=== PATIENT | male | born 1960 | race Caucasian/White ===

== ENCOUNTER 2018-05-10 12:04 | Emergency (ER) | payer OTHER ==
[2018-05-10] MEDS ORDERED: Nitrostat 0.4 MG (ED) SL ONE ×2 (12:29→12:39)
[2018-05-10] MEDS ORDERED: BABY ASPIRIN 81 MG CHEW ONE (12:29)
--- NOTE | 2018-05-10 12:38 | ERPHSYRPT ---
- History of Present Illness Time Seen by Provider: 05/10/18 12:34 Historian: patient, family Exam Limitations: no limitations Physician History: The patient is a 57-year-old male with a friend complaining of a sudden onset of central chest pain yesterday evening at 8:30 PM lasting one hour that began while he was at work. He was short of breath, nausea, and clammy. The pain went from the central chest and eventually settled onto the left chest. He remained at work even though the pain level was a 8 or 9 out of 10. He went home and went to bed. He has been experiencing musculoskeletal chest pain every night while in bed for 2 months. This muscular skeletal chest pain is definitely different than the chest pain he experienced while at work per patient report. This morning he complains of some mild central chest pain with a pain rating of 2 out of 10. Last night he described the chest pain as sharp and stabbing. He has no previous heart issues or problems. He has never had a stress test or an angiography. His past medical history is significant for GERD and arthritis. He quit smoking 11 years ago. Timing/Duration: yesterday, resolved prior to arrival, sudden Activities at Onset: none Quality: sharpness, stabbing Location: central Chest Pain Radiation: no radiation Severity of Pain-Max: severe Severity of Pain-Current: mild Modifying Factors: Improves With: nothing Associated Symptoms: nausea, shortness of breath, diaphoresis Prior Chest Pain/Cardiac Workup: no prior chest pain, no prior cardiac workup Nitro Today/Relief: 0.4 mg x 1, provided by ED Aspirin Treatment Today: 81 mg x 4, provided by ED Allergies/Adverse Reactions: No Known Drug Allergies Allergy (Verified 05/10/18 12:36) Home Medications: Lansoprazole [Prevacid] 30 mg PO DAILY 03/26/14 [History] Meloxicam 15 mg [Meloxicam 15 MG] 15 mg PO DAILY 05/10/18 [History] Hx Tetanus, Diphtheria Vaccination/Date Given: No Hx Influenza Vaccination/Date Given: No Hx Pneumococcal Vaccination/Date Given: No - Review of Systems Constitutional: No Fever, No Chills Eyes: No Symptoms Ears, Nose, & Throat: No Symptoms Respiratory: No Cough, No Dyspnea Cardiac: Chest Pain Abdominal/Gastrointestinal: No Abdominal Pain, No Nausea, No Vomiting, No Diarrhea Genitourinary Symptoms: No Dysuria Musculoskeletal: No Back Pain, No Neck Pain Skin: No Rash Neurological: No Dizziness, No Focal Weakness, No Sensory Changes Psychological: No Symptoms Endocrine: No Symptoms Hematologic/Lymphatic: No Symptoms Immunological/Allergic: No Symptoms All Other Systems: Reviewed and Negative - Past Medical History Neurological History: No Pertinent History ENT History: No Pertinent History Cardiac History: Angina, High Cholesterol, Hypertension Respiratory History: No Pertinent History Endocrine Medical History: No Pertinent History Musculoskeletal History: Arthritis GI Medical History: GERD, Hernia History: No Pertinent History Psycho-Social History: No Pertinent History Male Reproductive Disorders: No Pertinent History Other Medical History: BILATERAL KNEE ARTHROSCOPY - Past Surgical History Past Surgical History: Yes Neuro Surgical History: No Pertinent History Cardiac: No Pertinent History Respiratory: No Pertinent History Gastrointestinal: Hernia Repair Genitourinary: No Pertinent History Musculoskeletal: Orthopedic Surgery Male Surgical History: No Pertinent History Other Surgical History: L knee scope, R ankle - Social History Smoking Status: Never smoker How long have you smoked: quit 8 yea Exposure to second hand smoke: No Drug Use: none Patient Lives Alone: No - Nursing Vital Signs Nursing Vital Signs: Initial Vital Signs Temperature 97.8 F 05/10/18 12:05 Pulse Rate 60 05/10/18 12:05 Respiratory Rate 18 05/10/18 12:05 Blood Pressure 173/102 05/10/18 12:05 O2 Sat by Pulse Oximetry 100 05/10/18 12:05 Pain Scale Pain Intensity 2 - Physical Exam General Appearance: no apparent distress, alert Eye Exam: PERRL/EOMI, eyes nml inspection Ears, Nose, Throat Exam: normal ENT inspection, moist mucous membranes Neck Exam: normal inspection, non-tender, supple, full range of motion Respiratory Exam: normal breath sounds, lungs clear, No respiratory distress Cardiovascular Exam: regular rate/rhythm, normal heart sounds Gastrointestinal/Abdomen Exam: soft, No tenderness, No mass Rectal Exam: not done Back Exam: normal inspection, No CVA tenderness, No vertebral tenderness Extremity Exam: normal inspection, normal range of motion Neurologic Exam: alert, oriented x 3, cooperative, normal mood/affect, sensation nml, No motor deficits Skin Exam: normal color, warm, dry SpO2 Interpretation: normal SpO2: 100 Oxygen Delivery: Room Air - Course EKG Interpreted by Me: RATE, Sinus Rhythm, NORMAL AXIS, NORMAL INTERVALS, NORMAL QRS, NORMAL ST-T - Radiology Exams Chest X-ray Interpretation: Interpreted by me, Reviewed by me (per Dr Staley), Negative, Nml Heart Size Ordered Tests: Active Orders 24 hr Category Date Time Status Brim Shaper STAT Care 05/10/18 12:40 Active EKG-ER Only STAT Care 05/10/18 12:39 Active IV Insertion STAT Care 05/10/18 12:39 Active Pulse Oximetry (ED) STAT Care 05/10/18 12:39 Active CHEST 2 VIEWS (PA AND LAT) Stat Exams 05/10/18 12:39 Completed CBC W DIFF Stat Lab 05/10/18 12:15 Completed CMP Stat Lab 05/10/18 12:15 Completed D-DIMER QUANTITATION Stat Lab 05/10/18 12:15 Completed NT PRO BNP Stat Lab 05/10/18 12:15 Completed TROPONIN Q3H Lab 05/10/18 12:15 Completed TROPONIN Q3H Lab 05/10/18 15:45 Ordered TROPONIN Q3H Lab 05/10/18 18:45 Ordered TROPONIN Q3H Lab 05/10/18 21:45 Ordered TROPONIN Q3H Lab 05/11/18 00:45 Ordered Medication Summary Discontinued Medications Generic Name Dose Route Start Last Admin Trade Name Freq PRN Reason Stop Dose Admin Aspirin Confirm 05/10/18 12:29 Baby Aspirin 81 Mg Chew Administered 05/10/18 12:30 Dose 324 mg .ROUTE .STK-MED ONE Aspirin 324 mg 05/10/18 12:39 05/10/18 12:44 Baby Aspirin 81 Mg Chew PO 05/10/18 12:40 324 mg STAT ONE Administration Nitroglycerin Confirm 05/10/18 12:29 Nitrostat 0.4 Mg (Ed) Administered 05/10/18 12:30 Dose 0.4 mg SL .STK-MED ONE Nitroglycerin 0.4 mg 05/10/18 12:39 05/10/18 12:44 Nitrostat 0.4 Mg (Ed) SL 05/10/18 12:40 0.4 mg STAT ONE Administration Lab/Rad Data: Laboratory Result Diagrams 05/10/18 12:15 05/10/18 12:15 Laboratory Results 05/10/18 05/10/18 05/10/18 Range/Units 12:15 12:15 12:15 WBC (4.0-10.5) K/mm3 RBC (4.1-5.6) M/mm3 Hgb (12.5-18.0) gm/dl Hct (42-50) % MCV (78-100) fl MCH (26-32) pg MCHC (32-36) g/dl RDW (11.5-14.0) % Plt Count (150-450) K/mm3 MPV (6-9.5) fl Gran % (36.0-66.0) % Eos # (Auto) (0-0.5) Absolute Lymphs (auto) (1.0-4.6) Absolute Monos (auto) (0.0-1.3) Lymphocytes % (24.0-44.0) % Monocytes % (0.0-12.0) % Eosinophils % (0.00-5.0) % Basophils % (0.0-0.4) % Absolute Granulocytes (1.4-6.9) Basophils # (0-0.4) D-Dimer < 215 L (215-500) ng/mL Sodium 141 (137-145) mmol/L Potassium 4.2 (3.5-5.1) mmol/L Chloride 103 (98-107) mmol/L Carbon Dioxide 27 (22-30) mmol/L Anion Gap 14.9 (5-15) MEQ/L BUN 27 H (9-20) mg/dL Creatinine 0.83 (0.66-1.25) mg/dL Estimated GFR > 60.0 ML/MIN Glucose 129 H (74-106) mg/dL Calcium 9.8 (8.4-10.2) mg/dL Total Bilirubin 1.20 (0.2-1.3) mg/dL AST 53 (17-59) U/L ALT 78 H (0-50) U/L Alkaline Phosphatase 141 H (38-126) U/L Troponin I < 0.012 (0.000-0.034) ng/mL NT-Pro-B Natriuret Pep 33.7 (0-900) pg/mL Serum Total Protein 8.3 H (6.3-8.2) g/dL Albumin 5.0 (3.5-5.0) g/dL 05/10/18 Range/Units 12:15 WBC 4.8 (4.0-10.5) K/mm3 RBC 5.44 (4.1-5.6) M/mm3 Hgb 16.6 (12.5-18.0) gm/dl Hct 47.9 (42-50) % MCV 88.1 (78-100) fl MCH 30.5 (26-32) pg MCHC 34.7 (32-36) g/dl RDW 13.3 (11.5-14.0) % Plt Count 195 (150-450) K/mm3 MPV 10.5 H (6-9.5) fl Gran % 55.0 (36.0-66.0) % Eos # (Auto) 0.16 (0-0.5) Absolute Lymphs (auto) 1.42 (1.0-4.6) Absolute Monos (auto) 0.51 (0.0-1.3) Lymphocytes % 29.8 (24.0-44.0) % Monocytes % 10.7 (0.0-12.0) % Eosinophils % 3.4 (0.00-5.0) % Basophils % 1.1 (0.0-0.4) % Absolute Granulocytes 2.62 (1.4-6.9) Basophils # 0.05 (0-0.4) D-Dimer (215-500) ng/mL Sodium (137-145) mmol/L Potassium (3.5-5.1) mmol/L Chloride (98-107) mmol/L Carbon Dioxide (22-30) mmol/L Anion Gap (5-15) MEQ/L BUN (9-20) mg/dL Creatinine (0.66-1.25) mg/dL Estimated GFR ML/MIN Glucose (74-106) mg/dL Calcium (8.4-10.2) mg/dL Total Bilirubin (0.2-1.3) mg/dL AST (17-59) U/L ALT (0-50) U/L Alkaline Phosphatase (38-126) U/L Troponin I (0.000-0.034) ng/mL NT-Pro-B Natriuret Pep (0-900) pg/mL Serum Total Protein (6.3-8.2) g/dL Albumin (3.5-5.0) g/dL - Progress Progress: unchanged Air Movement: good Progress Note: 05/10/18 14:11 NG and ASA had no effect. Blood Culture(s) Obtained: No Antibiotics given: No Discussed with DrLydia: Shanique Will see patient in: office (Dr San to see) Counseled pt/family regarding: lab results, diagnosis, need for follow-up, rad results - Departure Time of Disposition: 14:11 Departure Disposition: Home Clinical Impression: Chest pain Condition: Stable Critical Care Time: No Referrals: AFRICA SAN [Primary Care Provider] - Additional Instructions: You have chest pain that is not caused by a cardiac problem. You were given aspirin 324 mg and nitroglycerin 0.4 mg in the ER. Your lab tests and your chest x-ray were normal. The specific test for heart muscle damage (troponin) was negative. I discussed your findings with Dr. Hadley today. You are to follow-up with Dr. San tomorrow. If you have severe chest pain again, please do not hesitate to return immediately to the ER.
[2018-05-10] MEDS ORDERED: BABY ASPIRIN 81 MG CHEW PO ONE (12:39)
[2018-05-10 12:47] LABS: BASOPHIL % 1.1 % (0.0-0.4); Basophil (Absolute #) 0.05 (0-0.4); Eosinophil % 3.4 % (0.00-5.0); Eosinophil (Absolute #) 0.16 (0-0.5); Granulocyte Absolute (ANC) 2.62 (1.4-6.9); Hematocrit 47.9 % (42-50); Hemoglobin 16.6 gm/dl (12.5-18.0); Lymphocyte (Absolute #) 1.42 (1.0-4.6); Lymphocytes % 29.8 % (24.0-44.0); Mean Cell Volume 88.1 fl (78-100); Mean Corpuscular Hemoglobin 30.5 pg (26-32); Mean Corpuscular Hgb Concent. 34.7 g/dl (32-36); Mean Platelet Volume 10.5 fl (6-9.5); Monocyte (Absolute #) 0.51 (0.0-1.3); Monocytes % 10.7 % (0.0-12.0); Platelet Count 195 K/mm3 (150-450); Red Blood Count 5.44 M/mm3 (4.1-5.6); Red Cell Distribution Width 13.3 % (11.5-14.0); White Blood Count 4.8 K/mm3 (4.0-10.5)
[2018-05-10 13:01] LABS: ALKALINE PHOSPHATASE 141 U/L (38-126); ANION GAP 14.9 MEQ/L (5-15); BLOOD UREA NITROGEN 27 mg/dL (9-20); CHLORIDE 103 mmol/L (98-107); Calcium 9.8 mg/dL (8.4-10.2); Carbon Dioxide 27 mmol/L (22-30); Creatinine 1 0.83 mg/dL (0.66-1.25); Glucose 129 mg/dL (74-106); NT PRO BNP 33.7 pg/mL (0-900); Potassium 4.2 mmol/L (3.5-5.1); SGOT/AST 53 U/L (17-59); SGPT/ALT 78 U/L (0-50); SODIUM 141 mmol/L (137-145); Total Protein 8.3 g/dL (6.3-8.2)
--- NOTE | 2018-05-10 13:13 | XRAY ---
Indication: Chest pain. Short of breath. Comparison: December 27, 2017. PA/lateral chest again demonstrates normal heart and lungs. Bony thorax intact with minimal degenerative changes. No new/acute findings.
[2018-05-10 13:54] VITALS: BP 161/94; PULSE 69
[2018-05-10 14:11] VITALS: O2SAT 100
== END 2018-05-10 14:17 | disposition home or self-care (01) ==
LOC: ED 12:04
DX: R07.9 Chest pain, unspecified (principal); Z79.899 Other long term (current) drug therapy
CPT/HCPCS: 36000; 36415; 71046; 80053; 83880; 84484; 85025; 85379; 93005; 93041; 99284; A9270-GY

== ENCOUNTER 2018-05-17 11:19 | Emergency (ER) | payer OTHER ==
[2018-05-17 11:39] VITALS: O2SAT 98
[2018-05-17] MEDS ORDERED: BABY ASPIRIN 81 MG CHEW PO ONE (11:46)
[2018-05-17] MEDS ORDERED: NITRO-BID 2% UD PACKETS TOP ONE (11:46)
--- NOTE | 2018-05-17 11:49 | ERPHSYRPT ---
- History of Present Illness Time Seen by Provider: 05/17/18 11:40 Historian: patient Exam Limitations: clinical condition Patient Subjective Stated Complaint: onset of CP while at rest in Physical therapy. has been getting therapy for generalized pain from waist to head. this was session #3. has had similar episodes last week which Dr San is aware of and is scheduled with a boot repairer . Triage Nursing Assessment: alert and oriented with C/O CP while at physical therapy today. mid sternal non radiating.. did have elevated b/p and diaphoresis.. chanel CP at this time.. skin w/d. denies other symptoms.. was at rest in PT when this started. has had similar episodes last week. Physician History: PATIENT RECENTLY DIAGNOSIS WITH TYPE 2 DIABETES 1 WEEK AGO, COMPLAINS OF SUBSTERNAL CHEST PAINS DAILY FOR 1 WEEK. ONSET DURING PHYSICAL THERAPY EXCERCISES PRIOR TO EMERGENCY ARRIVAL. HAD SUBSTERNAL CHEST PAIN, PAIN SCALE 8/ 10, ASSOCIATED WITH DIAPHORESIS AND DYSPNEA. DENIES PALPITATIONS, RADIATION OF CHEST PAIN TO NECK, ARMS OR BACK. DENIES CHEST DISCOMFORT UPON ARRIVAL TO EMERGENCY. Timing/Duration: intermittent (DAILY FOR 1 WEEK), improved Activities at Onset: activity Quality: sharpness, stabbing Location: substernal Chest Pain Radiation: no radiation Severity of Pain-Max: severe Severity of Pain-Current: none Modifying Factors: Improves With: exertion Associated Symptoms: shortness of breath, diaphoresis Prior Chest Pain/Cardiac Workup: no prior cardiac workup Nitro Today/Relief: no nitro taken today, 0.4 mg x 1 Aspirin Treatment Today: 81 mg x 4, provided by ED Allergies/Adverse Reactions: No Known Drug Allergies Allergy (Verified 05/10/18 12:36) Home Medications: Lansoprazole [Prevacid] 30 mg PO DAILY 03/26/14 [History] Meloxicam 15 mg [Meloxicam 15 MG] 15 mg PO DAILY 05/10/18 [History] Aspirin 81 gm Chew [Baby Aspirin 81 mg Chew] 81 mg PO DAILY 05/17/18 [ History] Cyclobenzaprine HCl 10 mg [Cyclobenzaprine 10 MG] 10 mg PO Q4-6HPRN PRN [History] Metformin HCl Xr 500 mg [Glucophage XR 500 MG] 500 mg PO DAILY 05/17/18 [ History] Hx Tetanus, Diphtheria Vaccination/Date Given: No Hx Influenza Vaccination/Date Given: No Hx Pneumococcal Vaccination/Date Given: No - Review of Systems Constitutional: No Fever, No Chills Eyes: No Symptoms Ears, Nose, & Throat: No Symptoms Respiratory: No Symptoms, No Cough, No Dyspnea Cardiac: Chest Pain, No Edema, No Syncope Abdominal/Gastrointestinal: No Symptoms, No Abdominal Pain, No Nausea, No Vomiting, No Diarrhea Genitourinary Symptoms: No Symptoms, No Dysuria Musculoskeletal: No Symptoms, No Back Pain, No Neck Pain Skin: No Rash Neurological: No Dizziness, No Focal Weakness, No Sensory Changes Psychological: No Symptoms Endocrine: No Symptoms All Other Systems: Reviewed and Negative - Past Medical History Pertinent Past Medical History: Yes Neurological History: No Pertinent History ENT History: No Pertinent History Cardiac History: Angina, High Cholesterol, Hypertension Respiratory History: No Pertinent History Endocrine Medical History: No Pertinent History Musculoskeletal History: Arthritis GI Medical History: GERD, Hernia History: No Pertinent History Psycho-Social History: No Pertinent History Male Reproductive Disorders: No Pertinent History Other Medical History: BILATERAL KNEE ARTHROSCOPY - Past Surgical History Past Surgical History: Yes Neuro Surgical History: No Pertinent History Cardiac: No Pertinent History Respiratory: No Pertinent History Gastrointestinal: Hernia Repair Genitourinary: No Pertinent History Musculoskeletal: Orthopedic Surgery Male Surgical History: No Pertinent History Other Surgical History: L knee scope, R ankle - Social History Smoking Status: Never smoker How long have you smoked: quit 8 yea Exposure to second hand smoke: No Drug Use: none Patient Lives Alone: No - Nursing Vital Signs Nursing Vital Signs: Initial Vital Signs Temperature 98 F 05/17/18 11:29 Pulse Rate 60 05/17/18 11:29 Respiratory Rate 18 05/17/18 11:29 Blood Pressure 179/101 05/17/18 11:29 O2 Sat by Pulse Oximetry 98 05/17/18 11:29 Pain Scale Pain Intensity 0 - Physical Exam General Appearance: no apparent distress, alert Eye Exam: PERRL/EOMI, eyes nml inspection Ears, Nose, Throat Exam: normal ENT inspection, moist mucous membranes Neck Exam: normal inspection, non-tender, supple, full range of motion Respiratory Exam: normal breath sounds, lungs clear, No respiratory distress Cardiovascular Exam: regular rate/rhythm, normal heart sounds Gastrointestinal/Abdomen Exam: soft, normal bowel sounds, No tenderness, No mass Back Exam: normal inspection, No CVA tenderness, No vertebral tenderness Extremity Exam: normal inspection, normal range of motion Neurologic Exam: alert, oriented x 3, cooperative, normal mood/affect, sensation nml, No motor deficits Skin Exam: normal color, warm, dry SpO2 Interpretation: normal SpO2: 98 Oxygen Delivery: Room Air - Course EKG Interpreted by Me: RATE, Sinus [place] ([id number] WITH INFERIOR LATERAL T WAVE INVERSION) - Radiology Exams Chest X-ray Interpretation: Discussed w/ radiologist, Negative, No Infiltrates Ordered Tests: Active Orders 24 hr Category Date Time Status Grain Mixer STAT Care 05/17/18 11:46 Active EKG-ER Only STAT Care 05/17/18 11:46 Active IV Insertion STAT Care 05/17/18 11:46 Active Oxygen-ED Only NASAL CANNULA 2 lpm Care 05/17/18 11:46 Active Pulse Oximetry (ED) STAT Care 05/17/18 11:46 Active CHEST 1 VIEW (PORTABLE) Stat Exams 05/17/18 11:46 Completed CBC W DIFF Stat Lab 05/17/18 11:48 Completed CMP Stat Lab 05/17/18 11:48 Completed D-DIMER QUANTITATION Stat Lab 05/17/18 11:48 Completed PROTIME WITH INR Stat Lab 05/17/18 11:48 Completed TROPONIN Q3H Lab 05/17/18 11:48 Completed TROPONIN Q3H Lab 05/17/18 15:00 Ordered TROPONIN Q3H Lab 05/17/18 18:00 Ordered TROPONIN Q3H Lab 05/17/18 21:00 Ordered TROPONIN Q3H Lab 05/18/18 00:00 Ordered Medication Summary Generic Name Dose Route Start Last Admin Trade Name Freq PRN Reason Stop Dose Admin Sodium Chloride 1,000 mls @ 50 mls/hr 05/17/18 12:00 05/17/18 11:58 Sodium Chloride 0.9% 1000 Ml IV 06/16/18 11:59 50 mls/hr .Q20H HEMAL Administration Discontinued Medications Generic Name Dose Route Start Last Admin Trade Name Freq PRN Reason Stop Dose Admin Aspirin 324 mg 05/17/18 11:46 05/17/18 11:57 Baby Aspirin 81 Mg Chew PO 05/17/18 11:47 324 mg STAT ONE Administration Aspirin Confirm 05/17/18 11:52 Baby Aspirin 81 Mg Chew Administered 05/17/18 11:53 Dose 324 mg .ROUTE .STK-MED ONE Clopidogrel Bisulfate 75 mg 05/17/18 12:15 05/17/18 12:21 Plavix 75 Mg Tablet PO 05/17/18 12:16 75 mg STAT ONE Administration Clopidogrel Bisulfate Confirm 05/17/18 12:20 Plavix 75 Mg Tablet Administered 05/17/18 12:21 Dose 75 mg .ROUTE .STK-MED ONE Nitroglycerin 1 gm 05/17/18 11:46 05/17/18 11:58 Nitro-Bid 2% Ud Packets TOP 05/17/18 11:47 1 gm STAT ONE Administration Nitroglycerin Confirm 05/17/18 11:52 Nitro-Bid 2% Ud Packets Administered 05/17/18 11:53 Dose 1 gm .ROUTE .STK-MED ONE Lab/Rad Data: Laboratory Result Diagrams 05/17/18 11:48 05/17/18 11:48 Laboratory Results 05/17/18 05/17/18 05/17/18 Range/Units 11:48 11:48 11:48 WBC (4.0-10.5) K/mm3 RBC (4.1-5.6) M/mm3 Hgb (12.5-18.0) gm/dl Hct (42-50) % MCV (78-100) fl MCH (26-32) pg MCHC (32-36) g/dl RDW (11.5-14.0) % Plt Count (150-450) K/mm3 MPV (6-9.5) fl Gran % (36.0-66.0) % Eos # (Auto) (0-0.5) Absolute Lymphs (auto) (1.0-4.6) Absolute Monos (auto) (0.0-1.3) Lymphocytes % (24.0-44.0) % Monocytes % (0.0-12.0) % Eosinophils % (0.00-5.0) % Basophils % (0.0-0.4) % Absolute Granulocytes (1.4-6.9) Basophils # (0-0.4) PT 11.4 (8.83-12.87) SECONDS INR 0.98 (0.8-3.0) D-Dimer < 215 L (215-500) ng/mL Sodium 141 (137-145) mmol/L Potassium 4.0 (3.5-5.1) mmol/L Chloride 100 (98-107) mmol/L Carbon Dioxide 30 (22-30) mmol/L Anion Gap 15.4 H (5-15) MEQ/L BUN 23 H (9-20) mg/dL Creatinine 0.88 (0.66-1.25) mg/dL Estimated GFR > 60.0 ML/MIN Glucose 120 H (74-106) mg/dL Calcium 10.0 (8.4-10.2) mg/dL Total Bilirubin 0.60 (0.2-1.3) mg/dL AST 46 (17-59) U/L ALT 74 H (0-50) U/L Alkaline Phosphatase 139 H (38-126) U/L Troponin I < 0.012 (0.000-0.034) ng/mL Serum Total Protein 7.6 (6.3-8.2) g/dL Albumin 4.6 (3.5-5.0) g/dL 05/17/18 Range/Units 11:48 WBC 4.3 (4.0-10.5) K/mm3 RBC 5.35 (4.1-5.6) M/mm3 Hgb 16.3 (12.5-18.0) gm/dl Hct 47.1 (42-50) % MCV 88.0 (78-100) fl MCH 30.5 (26-32) pg MCHC 34.6 (32-36) g/dl RDW 13.2 (11.5-14.0) % Plt Count 165 (150-450) K/mm3 MPV 10.5 H (6-9.5) fl Gran % 48.3 (36.0-66.0) % Eos # (Auto) 0.23 (0-0.5) Absolute Lymphs (auto) 1.43 (1.0-4.6) Absolute Monos (auto) 0.50 (0.0-1.3) Lymphocytes % 33.4 (24.0-44.0) % Monocytes % 11.7 (0.0-12.0) % Eosinophils % 5.4 H (0.00-5.0) % Basophils % 1.2 (0.0-0.4) % Absolute Granulocytes 2.07 (1.4-6.9) Basophils # 0.05 (0-0.4) PT (8.83-12.87) SECONDS INR (0.8-3.0) D-Dimer (215-500) ng/mL Sodium (137-145) mmol/L Potassium (3.5-5.1) mmol/L Chloride (98-107) mmol/L Carbon Dioxide (22-30) mmol/L Anion Gap (5-15) MEQ/L BUN (9-20) mg/dL Creatinine (0.66-1.25) mg/dL Estimated GFR ML/MIN Glucose (74-106) mg/dL Calcium (8.4-10.2) mg/dL Total Bilirubin (0.2-1.3) mg/dL AST (17-59) U/L ALT (0-50) U/L Alkaline Phosphatase (38-126) U/L Troponin I (0.000-0.034) ng/mL Serum Total Protein (6.3-8.2) g/dL Albumin (3.5-5.0) g/dL - Progress Progress: improved Progress Note: 05/17/18 12:10 ADMINISTERED BABY ASA 324MG ORALLY, APPLICATION NITROPASTE 1" ANTERIOR CHEST WALL. 05/17/18 13:23 ALL LAB TEST REVIEWED AND ARE NORMAL 05/17/18 14:29. HAS BEEN PAIN FREE THROUGH OUT EMERGENCY ROOM VISIT Discussed with : Other (DISCUSSED WITH DR العراقي AT 1310 ACCEPTS TRANSFER TO [facility] VIA [facility]) - Departure Time of Disposition: 14:30 Departure Disposition: Transfer Clinical Impression: ACUTE CHEST PAIN Condition: Stable Critical Care Time: No Referrals: AFRICA SAN [Primary Care Provider] -
[2018-05-17] MEDS ORDERED: Sodium Chloride 0.9% 1000 ML 1,000 ML ONE (11:52)
[2018-05-17] MEDS ORDERED: BABY ASPIRIN 81 MG CHEW ONE (11:52)
[2018-05-17] MEDS ORDERED: NITRO-BID 2% UD PACKETS ONE (11:52)
[2018-05-17] MEDS ORDERED: Sodium Chloride 0.9% 1000 ML 1,000 ML IV SCH (12:00)
[2018-05-17] MEDS ORDERED: PLAVIX 75 MG Tablet PO ONE (12:15)
[2018-05-17 12:17] LABS: BASOPHIL % 1.2 % (0.0-0.4); Basophil (Absolute #) 0.05 (0-0.4); Eosinophil % 5.4 % (0.00-5.0); Eosinophil (Absolute #) 0.23 (0-0.5); Granulocyte Absolute (ANC) 2.07 (1.4-6.9); Granulocytes % 48.3 % (36.0-66.0); Hematocrit 47.1 % (42-50); Hemoglobin 16.3 gm/dl (12.5-18.0); Lymphocyte (Absolute #) 1.43 (1.0-4.6); Lymphocytes % 33.4 % (24.0-44.0); Mean Corpuscular Hemoglobin 30.5 pg (26-32); Mean Corpuscular Hgb Concent. 34.6 g/dl (32-36); Mean Platelet Volume 10.5 fl (6-9.5); Monocytes % 11.7 % (0.0-12.0); Platelet Count 165 K/mm3 (150-450); Red Blood Count 5.35 M/mm3 (4.1-5.6); Red Cell Distribution Width 13.2 % (11.5-14.0); White Blood Count 4.3 K/mm3 (4.0-10.5)
[2018-05-17] MEDS ORDERED: PLAVIX 75 MG Tablet ONE (12:20)
--- NOTE | 2018-05-17 12:31 | XRAY ---
Indication: Dyspnea. Comparison: May 10, 2018. Portable chest again demonstrates normal heart and lungs. Bony thorax intact with minimal degenerative changes. No new/acute findings.
[2018-05-17 12:33] LABS: INR 0.98 (0.8-3.0)
[2018-05-17 12:37] LABS: D-DIMER QUANTITATION < 215 ng/mL (215-500)
[2018-05-17 12:44] LABS: ALBUMIN 4.6 g/dL (3.5-5.0); ALKALINE PHOSPHATASE 139 U/L (38-126); ANION GAP 15.4 MEQ/L (5-15); BLOOD UREA NITROGEN 23 mg/dL (9-20); CHLORIDE 100 mmol/L (98-107); Carbon Dioxide 30 mmol/L (22-30); Creatinine 1 0.88 mg/dL (0.66-1.25); Glucose 120 mg/dL (74-106); SGOT/AST 46 U/L (17-59); SGPT/ALT 74 U/L (0-50); SODIUM 141 mmol/L (137-145); Total Protein 7.6 g/dL (6.3-8.2)
[2018-05-17 13:24] VITALS: BP 159/99; PULSE 62
== END 2018-05-17 14:37 | disposition short-term general hospital (02) ==
LOC: ED 11:19
DX: R07.9 Chest pain, unspecified (principal); R61 Generalized hyperhidrosis; R06.02 Shortness of breath; Z79.899 Other long term (current) drug therapy; E11.9 Type 2 diabetes mellitus without complications; Z79.84 Long term (current) use of oral hypoglycemic drugs
CPT/HCPCS: 36000; 36415; 71045; 80053; 84484; 85025; 85379; 85610; 93005; 93041; 96360; 96361; 99285; A9270-GY

== ENCOUNTER 2019-10-05 05:55 | Day surgery (SDC) | payer OTHER ==
[2019-10-05] MEDS ORDERED: Lactated Ringers 1,000 ML IV SCH (06:30)
[2019-10-05] MEDS ORDERED: DIPRIVAN 200 MG/20 ML IV ONE (07:51)
--- NOTE | 2019-10-05 08:30 | OP ---
SURGERY DATE/TIME: 10/05/2019 0752 PREOPERATIVE DIAGNOSIS: Epigastric pain and family history of esophageal cancer. POSTOPERATIVE DIAGNOSIS: 1) Mild gastritis. 2) Diabetic gastroparesis. PROCEDURE: Esophagogastroduodenoscopy with cold forceps biopsy. SURGEON: Dr. San. ANESTHESIA: Medications were given by the anesthesia department. BRIEF HISTORY: The patient is a 59 year old white male patient who presents now for endoscopic evaluation. He reports that he had problems with epigastric discomfort, some reflux despite being on medication. He was also concerned because his brother has history of esophageal cancer. The patient was felt to need to have endoscopic evaluation. He was apprised of the risks of the procedure including the risk of perforation, phlebitis, untoward reaction to medication, bleeding and missed lesions. The patient verbalized his understanding and desired to have the procedure performed. DESCRIPTION OF PROCEDURE: The patient was given the medications by the anesthesia department. He had continuous pulse oximetry, ECG monitoring, intermittent blood pressure monitoring and tidal CO2 monitoring during the examination. He was placed in the left lateral decubitus position. A bite block was placed. The flexible Olympus gastroscope was used to intubate the oropharynx. A view of the larynx was obtained and was normal. The scope was easily introduced in the esophagus which was fairly normal throughout its length. The stomach was entered where large amounts of retained food products were seen obscuring approximately half the stomach. We were able to pass the scope along the greater curvature of the stomach to the antrum. Pylorus was encountered and intubated. The duodenum inspected and found to be normal. Biopsies were obtained from the gastric antrum to rule out the presence of Helicobacter pylori type organisms. The scope was then removed from the patient who tolerated the procedure well and was sent back to outpatient recovery in good condition.
[2019-10-05 08:38] VITALS: O2SAT 95
[2019-10-05 08:51] VITALS: BP 132/89; PULSE 68
== END 2019-10-05 09:07 | disposition home or self-care (01) ==
LOC: SDC 05:55
PROVIDERS: ATTEND Family Medicine
DX: K29.70 Gastritis, unspecified, without bleeding (principal); E11.43 Type 2 diabetes mellitus with diabetic autonomic (poly)neuropathy; K31.84 Gastroparesis; Z80.0 Family history of malignant neoplasm of digestive organs
CPT/HCPCS: 82962; 88305; J2704

== ENCOUNTER 2020-05-13 06:13 | Day surgery (SDC) | payer OTHER ==
[~2020-05-13 06:13] MED LIST: DIPRIVAN 200 MG/20 ML IV ONE
[2020-05-13] MEDS ORDERED: Lactated Ringers 1,000 ML IV SCH (06:30)
[2020-05-13 09:27] VITALS: BP 142/90; PULSE 57; O2SAT 98
--- NOTE | 2020-05-13 11:48 | OP ---
SURGERY DATE/TIME: 05/13/2020 0800 PREOPERATIVE DIAGNOSIS: Screening exam. POSTOPERATIVE DIAGNOSIS: Normal colon. PROCEDURE: Colonoscopy. SURGEON: Dr. San. ANESTHESIA: MAC. Medications given by anesthesia department. HISTORY: The patient is a 59 year old white male who reports it has been 15 years since his previous colonoscopy. They thought he had polyps at that time. The patient was felt to need to have endoscopic evaluation. He was appraised of the risks of the procedure including the risk of perforation, phlebitis, untoward reaction to medication, bleeding and missed lesions. The patient verbalized his understanding and desired to have the procedure performed. DESCRIPTION OF PROCEDURE: The patient was given the medications by the anesthesia department. He had continuous pulse oximetry, ECG monitoring, intermittent blood pressure monitoring and tidal CO2 monitoring during the examination. He was placed in the left lateral decubitus position. A digital rectal examination was performed and revealed normal anal sphincter tone, no masses and normal prostate. The flexible Olympus pediatric colonoscope was used to intubate the rectum. A view of the colon was developed sequentially to the cecum. Upon insertion and withdrawal, including a retroflex view in the rectum, no mucosal lesions were encountered. The scope was removed from the patient who tolerated the procedure well and was sent back to OP recovery in good condition. The prep was noted to be fair to good with approximately 2 to 3% of the colon with liquid stool which was suctioned clear. It was also noted that the colon was tortuous but we were able to get to the end with only moderate difficulty.
== END 2020-05-13 09:37 | disposition home or self-care (01) ==
LOC: SDC 06:13
PROVIDERS: ATTEND Family Medicine
DX: Z12.11 Encounter for screening for malignant neoplasm of colon (principal); E11.9 Type 2 diabetes mellitus without complications; I10 Essential (primary) hypertension; Z79.899 Other long term (current) drug therapy
CPT/HCPCS: 82962; J2704